=== PATIENT | female | born 1950 | race Two or more races ===

== ENCOUNTER 2020-04-01 05:55 | Day surgery (SDC) | payer OTHER ==
[2020-04-01] MEDS ORDERED: Tylenol #3 PO (13:01)
[2020-04-01] MEDS ORDERED: MORGIDOX100 MG PO (13:01)
== END 2020-04-01 17:50 | disposition home or self-care (01) ==
LOC: CIR.AMB 05:55 → ADM 10:45 → CIR.AMB 17:50
PROVIDERS: ATTEND Obstetrics & Gynecology
DX: N84.0 Polyp of corpus uteri (principal); D25.0 Submucous leiomyoma of uterus

== ENCOUNTER 2023-04-30 10:49 | Emergency (ER) | payer OTHER ==
[~2023-04-30] VITALS: Ht 165.1 cm; Wt 59.9 kg
[~2023-04-30 10:49] MED LIST: MORGIDOX100 MG PO; Tylenol #3 PO
== END 2023-04-30 14:08 | disposition home or self-care (01) ==
LOC: ER 10:49
DX: M94.0 Chondrocostal junction syndrome [Tietze] (principal); Z88.0 Allergy status to penicillin; Z88.2 Allergy status to sulfonamides